=== PATIENT | male | born 1970 | race Caucasian/White ===

== ENCOUNTER 2024-07-15 02:10 | Day surgery (SDC) | payer OTHER, SELFPAY ==
[2024-07-10 09:55] VITALS: BMI 22.4
--- NOTE | 2024-07-10 10:03 | PC.NURSE ---
Report to the Outpatient Waiting Room, entrance under the green pavilion located off [facility], at time _1030_ on date _[id number]_. Planned Procedure Time: _1230_.? Time changes happen often and if your time is changed the preop area will call you the afternoon before. - You and your visitor will be asked to self-screen and do not enter if you have any COVID symptoms. Please call surgeon if you need to reschedule. - A mask is optional within the hospital at this time. Patients may have clear liquids (water, carbonated beverages, clear teas, apple juice) until 3 hours prior to surgery with a maximum of 20 ounces. - No food from midnight until time of surgery and no smoking Take only the following medications with a SIP of water on the morning of surgery: ___Bupropion and Levothyroxine____ DO NOT STOP ANY OF YOUR OTHER PRESCRIPTION MEDICATIONS PRIOR TO SURGERY EXCEPT THE FOLLOWING Medications to discontinue per physician __Multivitamin Date to take last phda__[id number]___ Please no make-up, nail malaysian, hairspray, perfume, deodorant, or body powder the day of surgery.? No jewelry (including any body piercings) or valuables the day of surgery, leave them at home.? Please take a shower or bath the night before, or the morning of, surgery with an antibacterial soap.? Wear comfortable, loose fitting clothing.? - Jewelry must be removed prior to entering the operating room.? Rings and piercings that are not removed may be cut off. - The hospital will not accept responsibility for valuables.? - Please leave all valuables, including medications, at home the day of surgery. If you are going home after surgery, a licensed fire truck driver must drive you home.? - NO public transportation without another adult if you receive anesthesia. - We recommend that an adult stay with you for 24 hours following discharge. - We also recommend that you do not drive, make important decision, drink alcoholic beverages, or take any drugs that were not prescribed by your health care provider for at least 24 hours after your discharge time. Follow any additional instructions given to you from your surgeon. Telephone instructions given to __Jess__and asked if any additional questions and then verbalized understanding. Patient advised to call surgeon office or pre surgery nurse liaison [phone] if any additional questions.
--- NOTE | 2024-07-14 16:01 | P.PNAN_ITS ---
Anes - Eval Pre Procedure Procedure: Operation Date: 07/15/24 12:30 Proposed Procedures p Robotic Assisted Laparoscopic Left Inguinal Hernia Repair with Mesh - Clarence Gaines MD Date/Time: 07/14/24 16:01 Pre Op Diagnosis: Lt Ing Hernia Patient Data Age: 53 Gender: M Height: 1.85 m Weight: 77.3 kg Allergies Allergy/AdvReac Type Severity Reaction Status Date / Time No Known Allergies Allergy Verified 07/10/24 09:54 Home Medications Medication Instructions Recorded Confirmed Type bupropion HCl 450 mg 24 hr tablet, 450 mg PO DAILY 07/02/24 07/10/24 History extended release levothyroxine 37.5 mcg capsule 37.5 mcg PO DAILY 07/02/24 07/10/24 History multivitamin 1 tablet PO DAILY 07/10/24 07/10/24 History Patient hx anesthesia problems: none Family hx anesthesia problems: none Results Review: All pre-operative results and documents have been reviewed as part of the pre- operative evaluation. PMFSH Past Medical History Medical History Depression Hypothyroid Surgical History Surgical History History of umbilical hernia repair Hx of tonsillectomy Social History Social History Smoking status: Never smoker Alcohol intake: never Do You Feel Safe in your Home?: No Lack of Transportation: No Lack of Food: Never True Current Housing: I Have Housing Concerned About Future Housing: No Difficulty Paying Gas/Electric Bills: No Difficulty Paying for Meds: No Currently Unemployed: No Education: High School Diploma/GED Difficulty w/ Childcare or Family Care: No Living arrangements: with family Spiritual care concerns: No Exam Day of Procedure 07/14/24 16:01
[2024-07-15] VITALS (14 sets, daily range): BP systolic 105–146; BP diastolic 71–99; PULSE 14–83; RESP 11–20; TEMP 36.1–36.6; O2SAT 99–100
[2024-07-15] MEDS: LACTATED RINGERS 1,000 ML 30 ML IV CONT ×2 (11:00→14:55)
--- NOTE | 2024-07-15 11:42 | P.PNAN_ITS ---
Anes - Initial Pre Proc Eval Procedure: Operation Date: 07/15/24 12:30 Proposed Procedures p Robotic Assisted Laparoscopic Left Inguinal Hernia Repair with Mesh - Clarence Gaines MD Date/Time: 07/15/24 11:42 Surgeon: Clarence Gaines MD Pre Op Diagnosis: Lt Ing Hernia Patient Data Age: 53 Gender: M Height: 1.85 m Weight: 77.3 kg Allergies Allergy/AdvReac Type Severity Reaction Status Date / Time No Known Allergies Allergy Verified 07/10/24 09:54 Home Medications Medication Instructions Recorded Confirmed Type bupropion HCl 450 mg 24 hr tablet, 450 mg PO DAILY 07/02/24 07/10/24 History extended release levothyroxine 37.5 mcg capsule 37.5 mcg PO DAILY 07/02/24 07/10/24 History multivitamin 1 tablet PO DAILY 07/10/24 07/10/24 History Patient hx anesthesia problems: none Family hx anesthesia problems: none Results Review: All pre-operative results and documents have been reviewed as part of the pre- operative evaluation. PMFSH Past Medical History Medical History Depression Hypothyroid Surgical History Surgical History History of umbilical hernia repair Hx of tonsillectomy Social History Social History Smoking status: Never smoker Alcohol intake: never Do You Feel Safe in your Home?: No Lack of Transportation: No Lack of Food: Never True Current Housing: I Have Housing Concerned About Future Housing: No Difficulty Paying Gas/Electric Bills: No Difficulty Paying for Meds: No Currently Unemployed: No Education: High School Diploma/GED Difficulty w/ Childcare or Family Care: No Living arrangements: with family Spiritual care concerns: No Anes - Eval Final PreProcedure Day of Procedure 07/15/24 11:42 Patient weight: normal Heart: regular rate and rhythm Lungs: clear to auscultation Airway: Mallampati scale class II Neurological: alert and oriented Last oral intake: >/= 8 hours ASA classification: II Emergent: no Anesthetic plan: proceed Anesthesia type and monitoring: general GIVS and standard monitoring Results Review: All pre-operative results and documents have been reviewed as part of the pre- operative evaluation. Informed Consent: The patient's anesthetic plan and its attendant risks and benefits were discussed with the patient/family/POA. Questions were solicited and answers provided to the satisfaction of the patient/family/POA.
[2024-07-15] MEDS: KETOROLAC 15 MG/ML VIAL (*BKC) IV PUSH ×2 (11:55→14:40)
[2024-07-15] MEDS: ACETAMINOPHEN 500 MG TABLET 1000 MG PO (11:55)
--- NOTE | 2024-07-15 12:11 | WPDHPUPDATE1 ---
History and Physical Update Update Date/Time: 07/15/24 12:11 History and Physical has been reviewed, including an updated exam of the patient. There are NO changes in the patient's condition. Risks, benefits, and alternatives have been discussed and questions answered. Patient agrees to proceed with procedure.
[2024-07-15] MEDS: ceFAZolin 2 GM/D5W 50 ML 2 GM/50 ML BAG IVPB (12:39)
[2024-07-15] MEDS: LIDO 1%/EPINEPHRINE 1:100,000 50 ML VIAL 30 ML INFILTRATE (13:02)
[2024-07-15] MEDS: BUPivacaine HCL 0.5% 10 ML AMP 30 ML INFILTRATE (13:02)
--- NOTE | 2024-07-15 15:07 | P.OP_ITS ---
Procedure Note - Detailed Date of Procedure 07/15/24 Pre-op Diagnosis Left inguinal hernia, reducible Post-op Diagnosis Other ( Reducible bilateral inguinal hernias ( left indirect, right direct ).) Procedure Performed Robotic assisted laparoscopic bilateral inguinal hernia repair with Bard 3D mid weight mesh Surgeon Clarence Gaines MD Public Relations Intern Alvin Abdi ACCESS CONTROL SPECIALIST Anesthesia General Indications patient is a 53-year-old male who presented for evaluation the office for right groin pain and image diagnosis left inguinal hernia. On examination a small reducible left inguinal hernia could be palpated. I could not really appreciate a right inguinal hernia. He presents now for a robotic assisted laparoscopic left inguinal hernia repair with mesh, possible right inguinal hernia repair if one is seen. Findings Patient actually had bilateral inguinal hernias that were evident on viewing the bilateral groins laparoscopically. The right side appeared to be a small direct inguinal defect. The left side was a small indirect inguinal hernia defect. No incarcerated contents within the hernia defect. Patient's previous umbilical hernia repair with mesh was completely intact and there were no adhesions of bowel or omentum to the mesh. Description of Procedure After informed consent was obtained patient brought to the operating room was placed supine position and general endotracheal anesthesia was administered. The abdomen was then prepped and draped usual sterile fashion. A time-out was performed correctly identifying the patient as well as procedure to be performed. Initially there was a marked the left groin region. He was given perioperative IV antibiotics. I then entered the abdomen left upper quadrant utilizing a 10mm Optiview port. Once inside the abdomen insufflated to adequate pneumoperitoneum of 15mmHg of CO2. Once inside the abdomen I evaluated the area the umbilicus where he had a prior umbilical hernia repair with mesh. The repair appeared to be completely intact without evidence for recurrent umbilical hernia. The mesh was completely incorporated and there was no evidence of adhesions of omentum or bowel to the mesh. I then evaluated the bilateral groin regions. On the left side the patient had a small indirect left inguinal hernia defect. The right side had a small direct right inguinal hernia defect. I then placed additional robotic trocar ports across the mid abdomen under direct visualization. The [employer] robot was then brought to the patient's bedside and docked to the right side of the bed. The robotic arms were then attached the robotic ports. I then scrubbed out the procedure sent down at the robotic console to perform the repairs. I then initially made a preperitoneal flap across the lower part of the abdomen from the right anterior suprailiac spine to the left side. Dissection was carried this preperitoneal plane on the right side down to the internal ring. The bilateral median umbilical ligaments were divided and the bladder flap was taken down dissecting in the retrorectus space into I reached the pubic tubercle bilaterally. The pubic symphysis dissected free of the bladder and I continued my dissection down to the space of Retzius for couple cm. I continued my dissection to the left side and which time I dissected the peritoneum off of the inferior epigastric vessels and identified a small indirect inguinal hernia sac. There is no evidence of a Left direct defect. I then dissected the small indirect inguinal hernia sac off the cord structures and everted the hernia sac. On the left side there is no evidence of a cord lipoma. The cord structures included testicular vessels and vas deferens were left without any injury. I dissected the peritoneum off of the cord structures and the vas deferens up onto the psoas muscle and passed were the testicular vessels and vas deferens . At this point I felt I had enough of the peritoneum dissected proximally. My attention was then turned to the right side where the peritoneum was dissected out the pseudo sac of the direct space. The direct defect was relatively small so I did not close the direct defect and imbricate the the peritoneum was dissected proximally up onto the psoas muscle on the right and the cord structures to include the vas deferens and testicular vessels were preserved without injury. There was a small right-sided cord lipoma which was dissected out of the internal ring and once the fatty tissue was resected it was removed from the abdomen. The peritoneum was dissected at onto the psoas muscle so that the proximal edge of the mesh would not roll up with the closure of the peritoneum. I then chose to use extra large pieces of Bard 3D mid weight mesh her both sides. The pieces of mesh were oriented for each side and they were placed into the abdomen and placed into the dissected space covering the whole home myopectineal orifice on both sides. The meshes overlapped in the middle over the pubic symphysis and the edges of the mesh extended down into the space of Retzius. The 2 meshes were then secured to the tissue around the pubic tubercle utilizing 2-0 Vicryl sutures placed in suture robotically. Laterally in both meshes they were secured to the muscle tissue anterior medial to the anterior suprailiac spine. Additional 2-0 Vicryl sutures were placed in the muscle just above the direct defect on the right side. The meshes were secured well and there was no tension on the repairs I then proceeded to close the peritoneum over the mesh was utilizing a running absorbable 2 0V lock suture. At this point the 2 pieces of mesh were completely covered with peritoneum and excluded from the abdominal viscera. There were no holes in the peritoneum. Robotic instruments were then removed from the abdomen and the [employer] robot was undocked from the patient's bedside. I then scrubbed back into the procedure to close the port sites. A 0 Vicryl suture was placed to close each of the port sites with a suture Passer under direct visualization with the laparoscopic. All the ports were then removed under direct visualization all port sites appeared hemostatic. The abdomen was then allowed to decompress. I then irrigated all the port sites sterile saline solution hemostasis was good. All the port sites were then closed at the skin level utilizing a running subcuticular 4-0 Monocryl suture. Incisions were then cleaned the skin glue was applied. A scrotal support was applied to the patient and the procedure. The patient tolerated the procedure well no complications. All sponges, needles, and instrument counts were correct at the end procedure. EBL was _20__cc. The patient was awakened and taken to recovery in stable and satisfactory condition. Implants Bard 3D mid weight mesh bilateral groins [id number] ( extra-large ). Two pieces of mesh used. Estimated Blood Loss 20 Drains No Packing No Pathology None sent Complications No immediate complications Condition Stable Disposition PACU [facility] Billing Surgery - Charge Forward: Surgery Billing
--- NOTE | 2024-07-15 15:41 | SUR.PHASEI ---
1541 - dr. singer at bedside
[2024-07-15] MEDS: fentaNYL CITRATE INJ (*CRX) 100 MCG/2 ML VIAL 25 MCG IV PUSH ×4 (15:46→16:05)
[2024-07-15] MEDS: oxyCODONE HCL (*CRX) 5 MG TAB IR PO (16:50)
--- NOTE | 2024-07-15 18:50 | SUR.PHASEII ---
Pt voided unmeasured amt clear yellow urine.
== END 2024-07-15 19:00 | disposition home or self-care (01) ==
PROVIDERS: Visit Provider Surgery
PROC: 8E0Y4CZ Robotic Assisted Procedure of Lower Extremity, Percutaneous Endoscopic Approach (ICD-10-PCS; CPT 49650; principal; 2024-07-15 12:30)
DX: K40.20 Bilateral inguinal hernia, without obstruction or gangrene, not specified as recurrent (principal); F32.A Depression, unspecified; E03.9 Hypothyroidism, unspecified; Z98.890 Other specified postprocedural states
CPT/HCPCS: 49650; S2900; 36415; 86850; 86900; 86901; A9270; C1781; J0690; J1885; J2003; J2004; J2250; J2371; J2405; J2704; J3010; J7120